=== PATIENT | female | born 1985 | race Caucasian/White ===

== ENCOUNTER 2022-07-09 11:47 | Emergency (ER) | payer MEDICAID ==
[~2022-07-09] VITALS: Ht 167.6 cm; Wt 74.8 kg
[2022-07-09 11:54] VITALS: BP 88/49
--- NOTE | 2022-07-09 12:03 | NUR ---
36 y/o female bib family from home, pt presents to ed with facial swelling and redness on right side of face. denies sob, cp, n/v/d, cough, fever, chills. pt states yesterday it started to swell and took benadryl to help, no relief, took medication this morning with no relief. deneis blurry vision, headaches, trauma to area. denies eating shellfish, shrimp, new lotions, detergents, pets or new exposures. a&ox4, ambulates with steady gait. pt o2 saturation on ra will drop to 93% and go back up to 98%, denies sob or throat closing with desaturation. pmh: denies allergy: shrimp (swelling, hives) med: benadryl last dose 929 no relief
[2022-07-09] MEDS ORDERED: NACL 0.9% 1,000 ML IV ONE (12:10)
[2022-07-09] MEDS ORDERED: IBUP-2213 PO (14:37)
[2022-07-09] MEDS ORDERED: AMOX1TAB8 PO (14:37)
[2022-07-09] MEDS ORDERED: DEC4 PO (14:37)
[2022-07-09 14:54] VITALS: BP 126/77
--- NOTE | 2022-07-09 14:54 | NUR ---
Patient discharged with v/s stable. Written and verbal after care instructions given and explained. Patient alert, oriented and verbalized understanding of instructions. Ambulatory with steady gait. All questions addressed prior to discharge. ID band removed. Patient advised to follow up with PMD. Rx of amoxicillin, dexamethasone, ibuprofen (sent) given. Patient educated on indication of medication including possible reaction and side effects. Opportunity to ask questions provided and answered.
== END 2022-07-09 14:54 | disposition home or self-care (01) ==
LOC: MED 11:47
DX: K04.7 Periapical abscess without sinus (principal); Z91.013 Allergy to seafood
CPT/HCPCS: 96360; 99283; J7030

== ENCOUNTER 2023-09-13 09:01 | Emergency (ER) | payer MEDICAID ==
[~2023-09-13] VITALS: Ht 167.6 cm; Wt 75.7 kg
[~2023-09-13 09:01] MED LIST: AMOX1TAB8 PO; DEC4 PO; IBUP-2213 PO
[2023-09-13 09:16] VITALS: BP 114/76; PULSE 80; RESP 18; TEMP 97.3; O2SAT 99
[2023-09-13] MEDS ORDERED: ONDANSETRON 4 MG ODT PO ONE (10:10)
[2023-09-13 10:47] LABS: FLU A ANTIGEN negative (NEGATIVE); FLU B ANTIGEN NEGATIVE (NEGATIVE)
[2023-09-13] MEDS ORDERED: MUC600 PO (10:57)
[2023-09-13] MEDS ORDERED: ONDA-188 SL (10:57)
[2023-09-13] MEDS ORDERED: BENZ200C4 PO (10:57)
== END 2023-09-13 11:06 | disposition home or self-care (01) ==
LOC: MED 09:01
DX: U07.1 COVID-19 (principal); Z79.899 Other long term (current) drug therapy
CPT/HCPCS: 87426; 87804; 99283; Q0162